=== PATIENT | female | born 1960 | race Caucasian/White ===

== ENCOUNTER 2021-09-29 14:05 | Inpatient (IN) | payer MEDICARE, OTHER ==
[~2021-09-29] VITALS: Ht 160 cm; Wt 74.4 kg
--- NOTE | 2021-09-29 14:16 | NUR ---
AYSE [id number] From Board and Care Slip/Fell 09/19 Dx w/Left LE Fx Boot applied. Here for re-evaluation". Rates left leg pain 12/08. Respiration regular and unlabored. Will continue to monitor the patient.
--- NOTE | 2021-09-29 14:32 | NUR ---
IV LINE IS ESTABLISHED, BLOOD SPECIMEN COLLECTED AND SENT TO THE LAB. THE LINE IS SALINE LOCKED.
[2021-09-29 14:44] LABS: BASOPHILS # (AUTO) 0.1 K/uL (0.0-0.2); BASOPHILS % (AUTO) 0.7 % (0.0-2.0); EOSINOPHILS % (AUTO) 2.9 % (0.0-6.0); HEMATOCRIT 32 % (33-45); HEMOGLOBIN 10.3 g/dL (11.5-14.8); LYMPHOCYTES # (AUTO) 3.1 K/uL (0.8-4.8); LYMPHOCYTES % (AUTO) 30.1 % (20.0-44.0); MEAN CORPUSCULAR HGB CONC 33 g/dl (31.0-36.0); MEAN CORPUSCULAR VOLUME 99 fL (82-100); MONOCYTES # (AUTO) 1.4 K/uL (0.1-1.30); MONOCYTES % (AUTO) 13.1 % (2.0-12.0); NEUTROPHILS # (AUTO) 5.5 K/uL (1.8-8.9); NEUTROPHILS % (AUTO) 53.2 % (43.0-81.0); PLATELET COUNT (AUTO) 467 K/uL (150-450); RED BLOOD CELL COUNT(AUTO) 3.18 MIL/uL (4.0-5.2); WHITE BLOOD COUNT (AUTO) 10.3 K/uL (4.3-11.0)
[2021-09-29 14:51] LABS: CALCIUM, SERUM 8.2 mg/dL (8.5-10.1); CARBON DIOXIDE 28 mmol/L (21-32); CHLORIDE 106 mmol/L (98-107); CREATININE 0.7 mg/dL (0.6-1.3); GLUCOSE 129 mg/dL (74-106); POTASSIUM 3.8 mmol/L (3.5-5.1); SODIUM SERUM 141 mmol/L (136-145); UREA NITROGEN, BLOOD 13 mg/dL (7-18)
--- NOTE | 2021-09-29 14:56 | NUR ---
X-RAY TECH AT THE BEDSIDE
[2021-09-29 15:01] LABS: ALANINE AMINOTRANSFERASE 7 U/L (12-78); ALBUMIN 2.1 g/dL (3.4-5.0); ALKALINE PHOSPHATASE 79 U/L (46-116); ASPARTATE AMINOTRANSFERASE 10 U/L (15-37); BILIRUBIN,DIRECT 0.1 mg/dL (0.0-0.2); BILIRUBIN,TOTAL 0.2 mg/dL (0.2-1.0); TOTAL PROTEIN, SERUM 5.9 g/dL (6.4-8.2)
--- NOTE | 2021-09-29 15:20 | NUR ---
COVID SWAB DONE AND SENT TO THE LAB
[2021-09-29] MEDS ORDERED: TOPI25TA PO (15:30)
[2021-09-29] MEDS ORDERED: DIVA500T2 PO (15:30)
[2021-09-29] MEDS ORDERED: METF-440 PO (15:30)
[2021-09-29] MEDS ORDERED: LATA2.5D15 EACHEYE (16:13)
[2021-09-29] MEDS ORDERED: BRIM5DRO2 EACHEYE (16:13)
[2021-09-29] MEDS ORDERED: CHOL200026 PO (16:13)
--- NOTE | 2021-09-29 16:35 | NUR ---
URINE COLLECTED AND SENT TO LAB
[2021-09-29 16:48] LABS: BILIRUBIN,URINE Negative (NEGATIVE); COLOR,URINE YELLOW (YELLOW); LEUKOCYTE ESTERASE ,URINE Negative (NEGATIVE); NITRITE, URINE Negative (NEGATIVE); PH,URINE 5.5 (5.0-8.0); PROTEIN,URINE Negative (NEGATIVE); UGLUCOSE Negative (NEGATIVE); UROBILINOGEN,URINE 0.2 EU/dL (0.2)
[2021-09-29 16:57] LABS: BACTERIA,URINE 1+ /HPF (None Seen); SQUAMOUS EPITHELIAL CELL,UR Many /HPF (None Seen); WBC,URINE 0-2 /HPF (0-3)
--- NOTE | 2021-09-29 17:30 | NUR ---
ROOM 120
--- NOTE | 2021-09-29 17:33 | NUR ---
REPORT GIVEN TO NURSE TAN
[2021-09-29] MEDS ORDERED: ONDANSETRON HCL/PF 4 MG/2 ML VIAL ONE (18:02)
[2021-09-29] MEDS ORDERED: MORPHINE SULFATE INJ 4 MG/ML DISP.SYRIN ONE (18:03)
[2021-09-29] MEDS: MORPHINE SULFATE INJ 4 MG/ML DISP.SYRIN IV PRN (18:09)
--- NOTE | 2021-09-29 18:09 | NUR ---
PT TAKEN TO RADIOLOGY FOR L KNEE CT SCAN VIA [employer]. MEDICATED ORDERED.
--- NOTE | 2021-09-29 18:13 | NUR ---
THE PATIENT IS TRANSFERED TO ROOM 120 IN STABLE CONDITION AND PER POLICY
[2021-09-29] MEDS ORDERED: ONDANSETRON HCL/PF 4 MG/2 ML VIAL IV PRN (18:30)
[2021-09-29 18:42] VITALS: BP 114/48
--- NOTE | 2021-09-29 19:20 | NUR ---
RN NOTES RECEIVED REPORT FROM MORNING RN. PATIENT IN BED A/O X3. NO SOB NO DISTRESS AT THIS TIME. VITAL SIGNS TAKEN AND RECORDED WITH IV ACCESS AT L AC PATENT FLUSHES WELL. WITH R LEG FRACTURE. ADMISSION SKIN ASSESSMENT DONE PICTURE TAKEN. IV OF D5 1/2 NS @75CC STARTED. WILL CONTINUE TO MONITOR.
[2021-09-29] MEDS ORDERED: ZOLPIDEM TARTRATE 5 MG TABLET PO PRN (19:30)
[2021-09-29] MEDS ORDERED: Z GUARD REMEDY 2 OZ OINT TP PRN (19:30)
[2021-09-29] MEDS ORDERED: MAG HYDROX/AL HYDROX/SIMETH 30 ML UDC PO PRN (19:30)
[2021-09-29] MEDS ORDERED: ACETAMINOPHEN 325 MG TABLET PO PRN (19:30)
[2021-09-29] MEDS ORDERED: ONDANSETRON HCL/PF 4 MG/2 ML VIAL IVP PRN (19:30)
[2021-09-29] MEDS ORDERED: MAGNESIUM HYDROXIDE 30 ML UDC PO PRN (19:30)
[2021-09-29] MEDS ORDERED: IV 1/2NS 1000 ML 1,000 ML IV PRN (19:30)
[2021-09-29] MEDS: IV D5/0.45 NACL 1,000 ML IV PRN (20:50)
[2021-09-29] MEDS: CLINDAMYCIN 600 MG in IV D5W 50 ML IV SCH (21:08)
[2021-09-29] MEDS: LATANOPROST EYE DROP 0.005% 2.5 ML BOTTLE EACHEYE SCH (22:52)
[2021-09-30 02:00] VITALS: BP 99/60
[2021-09-30] MEDS: CLINDAMYCIN 600 MG in IV D5W 50 ML IV SCH (04:26)
--- NOTE | 2021-09-30 06:45 | NUR ---
RN NOTES PATIENT REMAINS STABLE THE WHOLE SHIFT. NO SIGNIFICANT CHANGES IN HEALTH CONDITION. ALL DUE MEDS GIVEN ORDERD. KEPT CLEAN AND DRY AT ALL TIMES. HOB ELEVATED, BED ON LOWEST POSITION AND LOCKED. CALL LIGHT WITHIN REACH. PATIENT STILL ON NPO EXCEPT MEDS. FOR POSSIBLE OR.
--- NOTE | 2021-09-30 07:00 | NUR ---
RN NOTES PATIENT INFORMED ABOUT THE PLAN FOR ORIF. PATIENT STATED THAT SHE WANTS TO TALK TO THE DOCTOR AND SHE DOES NOT WANT ANY OPERATION AT THIS TIME. PATIENT IS A/O X4. WILL ENDORSED.
[2021-09-30 07:47] LABS: BASOPHILS # (AUTO) 0.1 K/uL (0.0-0.2); BASOPHILS % (AUTO) 0.6 % (0.0-2.0); EOSINOPHILS % (AUTO) 3.6 % (0.0-6.0); HEMATOCRIT 30 % (33-45); HEMOGLOBIN 10.1 g/dL (11.5-14.8); LYMPHOCYTES # (AUTO) 1.7 K/uL (0.8-4.8); LYMPHOCYTES % (AUTO) 21.1 % (20.0-44.0); MEAN CORPUSCULAR HGB CONC 34 g/dl (31.0-36.0); MEAN CORPUSCULAR VOLUME 99 fL (82-100); MONOCYTES # (AUTO) 1.5 K/uL (0.1-1.30); MONOCYTES % (AUTO) 18.2 % (2.0-12.0); NEUTROPHILS # (AUTO) 4.7 K/uL (1.8-8.9); NEUTROPHILS % (AUTO) 56.5 % (43.0-81.0); PLATELET COUNT (AUTO) 429 K/uL (150-450); RED BLOOD CELL COUNT(AUTO) 3.03 MIL/uL (4.0-5.2); WHITE BLOOD COUNT (AUTO) 8.3 K/uL (4.3-11.0)
--- NOTE | 2021-09-30 07:55 | NUR ---
RN OPEN NOTE PT RECEIVED IN BED ALERT AND ORIENTED X 4, WITH NO SOB OR DISTRESS AT THIS TIME BREATHING EVEN AND UNLABORED IN ROOM AIR TOLERATING WELL, WITH A LEFT TIBIAL/FX FRACTURE WITH PLAN FOR OR, NO CONSENT SIGN YET PT IS REFUSING, PT IS NPO EXCEPT MEDS, IV ON THE LAC #20 PATENT AND FLUSHING WELL RUNNING DS 1/2 NS 75CC/HR, SAFETY MEASURES IN PLACE BED LOCKED AND IN LOWEST POSITION CALL LIGHT WITHIN REACH WILL CONTINUE TO MONITOR
[2021-09-30] MEDS: CHOLECALCIFEROL 1,000 UNIT TABLET (VIT D3) PO SCH (09:11)
[2021-09-30] MEDS: DIVALPROEX SODIUM 500 MG TABLET.DR PO SCH ×2 (09:11→17:34)
[2021-09-30] MEDS: BRIMONIDINE TARTRATE OPHT SOLN 5 ML BOTTLE EACHEYE SCH (09:11)
[2021-09-30] MEDS: TOPIRAMATE 25 MG TABLET PO SCH ×3 (09:12→17:34)
[2021-09-30 09:45] LABS: CALCIUM, SERUM 7.8 mg/dL (8.5-10.1); CREATININE 0.7 mg/dL (0.6-1.3); MAGNESIUM 1.9 mg/dL (1.8-2.4); POTASSIUM 3.2 mmol/L (3.5-5.1)
[2021-09-30 10:00] VITALS: BP 98/54
--- NOTE | 2021-09-30 12:00 | NUR ---
RN NOTE CONSENT SIGNED FOR OPEN REDUCTION INTERNAL FIXATION OF LEFT LEG. AT BED SIDE EXPLAINED PROCEDURE TO THE PT PT AGREE FOR SURGERY
[2021-09-30 12:23] LABS: EOSINOPHILS % (MANUAL) 4 % (0-4); LYMPHOCYTES % (MANUAL) 19 % (16-48); MONOCYTES % (MANUAL) 16 % (0-11.0); NEUTROPHILS % (MANUAL) 61 (42-76)
--- NOTE | 2021-09-30 13:00 | NUR ---
RN NOTE PT WENT TO THE OR FOR SURGERY
[2021-09-30] MEDS ORDERED: HYDROMORPHONE INJ 2 MG/ML DISP.SYRIN ONE (13:42)
[2021-09-30] MEDS ORDERED: FENTANYL PF 250MCG/5ML AMPUL ONE (13:42)
[2021-09-30] MEDS ORDERED: ROCURONIUM BROMIDE 50 MG/5 ML ONE (13:43)
[2021-09-30] MEDS ORDERED: FAMOTIDINE/PF INJ 20 MG/2 ML VIAL IV ONE (13:43)
[2021-09-30] MEDS ORDERED: MIDAZOLAM HCL 2 MG/2ML VIAL ONE (13:43)
[2021-09-30] MEDS ORDERED: VANCOMYCIN 1 GM in IV D5W 250 ML IV ONE (14:00)
[2021-09-30] MEDS: CEFTRIAXONE 2 G in IV D5W 100 ML IV SCH (14:29)
--- NOTE | 2021-09-30 14:30 | NUR ---
RN NOTE PT CAME BACK FROM THE OR SURGERY, CANCELLED FOR SUNDAY AT 9:30 AM
--- NOTE | 2021-09-30 14:40 | NUR ---
RN NOTE PT STARTED ON VANCOMYCIN PER SURGEON
--- NOTE | 2021-09-30 15:00 | NUR ---
RN NOTES PT BACK TO REGULAR DIET UNTIL SUNDAY MIDNIGHT PER DOCTOR
[2021-09-30] MEDS: ENOXAPARIN SODIUM 40 MG/0.4 ML DISP.SYRIN SQ SCH (16:00)
[2021-09-30 18:00] VITALS: BP 100/40
--- NOTE | 2021-09-30 18:29 | NUR ---
RN CLOSING NOTE PT REMAINS IN BED ALERT AND ORIENTED X 4, WITH NO SOB OR DISTRESS AT THIS TIME BREATHING EVEN AND UNLABORED IN ROOM AIR TOLERATING WELL, WITH A LEFT TIBIAL/FX FRACTURE WITH PLAN FOR OR ON Sunday10/03/2021 AT 9:30 AM , CONSENT SIGNED PT IS BACK TO REGULAR DIET, IV ON THE LAC #20 PATENT AND FLUSHING WELL, ALL NEEDS MET, SAFETY MEASURES IN PLACE BED LOCKED AND IN LOWEST POSITION CALL LIGHT WITHIN REACH WILL ENDORSE TO RIBBON TIERLOGISTICS OFFICER
[2021-09-30] MEDS: HYDROCODONE/APAP 5/325MG TABLET PO PRN (19:38)
[2021-09-30] MEDS: IV D5/0.45 NACL 1,000 ML IV PRN (19:58)
[2021-09-30 20:00] VITALS: BP 96/52
--- NOTE | 2021-09-30 20:00 | NUR ---
Patient is alert and oriented x3. VS at baseline for pt. No signs of distress. Patient does however c/o 7/10 L lower leg pain at site of cellulitis medicated as per MD order. Extremity also elevated. No other issues at this time. Will continue to monitor closely.
[2021-09-30] MEDS: LATANOPROST EYE DROP 0.005% 2.5 ML BOTTLE EACHEYE SCH (21:55)
[2021-10-01] MEDS: VANCOMYCIN 1 GM in IV D5W 250 ML IV SCH ×2 (01:22→13:43)
[2021-10-01 04:00] VITALS: BP 109/61
[2021-10-01] MEDS: IV D5/0.45 NACL 1,000 ML IV PRN ×2 (06:46→18:42)
--- NOTE | 2021-10-01 07:10 | NUR ---
RN NOTE PATIENT OBSERVED IN BED AWAKE AND ORIENTED X3, ABLE TO VERBALIZE NEEDS, ADMITTED FOR LEFT LEG FRACTURE, ON ROOM AIR 100% O2 SAT NO SOB NOTED, LEFT AC GAUGE 20 D5 1/2 NS @ 75CC/HR INFUSING WELL SAFETY MEASURES OBSERVED, CALL LIGHT WITHIN REACH, WILL CONTINUE TO MONITOR.
[2021-10-01 07:14] LABS: BASOPHILS # (AUTO) 0.1 K/uL (0.0-0.2); BASOPHILS % (AUTO) 0.5 % (0.0-2.0); EOSINOPHILS % (AUTO) 1.8 % (0.0-6.0); HEMATOCRIT 28 % (33-45); HEMOGLOBIN 9.8 g/dL (11.5-14.8); LYMPHOCYTES % (AUTO) 19.2 % (20.0-44.0); MEAN CORPUSCULAR HGB CONC 34 g/dl (31.0-36.0); MEAN CORPUSCULAR VOLUME 97 fL (82-100); MONOCYTES # (AUTO) 1.5 K/uL (0.1-1.30); MONOCYTES % (AUTO) 14.9 % (2.0-12.0); NEUTROPHILS # (AUTO) 6.6 K/uL (1.8-8.9); NEUTROPHILS % (AUTO) 63.6 % (43.0-81.0); PLATELET COUNT (AUTO) 446 K/uL (150-450); RED BLOOD CELL COUNT(AUTO) 2.92 MIL/uL (4.0-5.2); WHITE BLOOD COUNT (AUTO) 10.4 K/uL (4.3-11.0)
[2021-10-01 07:23] LABS: CALCIUM, SERUM 8.7 mg/dL (8.5-10.1); CREATININE 0.7 mg/dL (0.6-1.3); MAGNESIUM 2.2 mg/dL (1.8-2.4); POTASSIUM 3.8 mmol/L (3.5-5.1)
[2021-10-01] MEDS: BRIMONIDINE TARTRATE OPHT SOLN 5 ML BOTTLE EACHEYE SCH (08:32)
[2021-10-01] MEDS: CHOLECALCIFEROL 1,000 UNIT TABLET (VIT D3) PO SCH (08:32)
[2021-10-01] MEDS: HYDROCODONE/APAP 5/325MG TABLET PO PRN ×2 (08:33→16:24)
[2021-10-01] MEDS: TOPIRAMATE 25 MG TABLET PO SCH ×3 (08:33→16:24)
[2021-10-01] MEDS: DIVALPROEX SODIUM 500 MG TABLET.DR PO SCH ×2 (08:33→16:24)
[2021-10-01] MEDS: ENOXAPARIN SODIUM 40 MG/0.4 ML DISP.SYRIN SQ SCH (08:35)
[2021-10-01 12:00] VITALS: BP 112/56
[2021-10-01] MEDS: CEFTRIAXONE 2 G in IV D5W 100 ML IV SCH (12:46)
[2021-10-01 16:00] VITALS: BP 112/61
--- NOTE | 2021-10-01 18:50 | NUR ---
RN NOTE PATIENT OBSERVED IN BED AWAKE AND ORIENTED X3, ABLE TO VERBALIZE NEEDS, ADMITTED FOR LEFT LEG FRACTURE, ON ROOM AIR 100% O2 SAT NO SOB NOTED,RIGHT HAND GAUGE 20 D5 1/2 NS @ 75CC/HR INFUSING WELL. ON SEIZURE PRECAUTION, HOLD ANTI COAGULANT TOMORROW, SAFETY MEASURES OBSERVED, CALL LIGHT WITHIN REACH, WILL ENDORSE TO NOC SHIFT.
--- NOTE | 2021-10-01 19:10 | NUR ---
RN NOTES RECEIVED REPORT FROM MORNING NURSE. PATIENT IS A/O X3.NO DISTRESS, NO SOB NOTED AT THIS TIME. VITAL SIGNS TAKEN AND RECORDED WITH IV ACCESS ON R ARM G#22 PATENT FLUSHES WELL. WITH ONGOING IVF OF D5 1/2 NS @75CC/HR. ALL SAFETY MEASURES IN PLACE AT ALL TIMES. HOB ELEVATED, CALL LIGHT WITHIN REACH, BED ON LOWEST POSITION AND LOCKED. WILL CONTINUE TO MONITOR THE PATIENT.
[2021-10-01 20:00] VITALS: BP 100/76
[2021-10-01] MEDS: LATANOPROST EYE DROP 0.005% 2.5 ML BOTTLE EACHEYE SCH (22:34)
--- NOTE | 2021-10-01 23:55 | NUR ---
RN NOTES PATIENT REMAINS STABLE AT THIS TIME. DR. MONO NICOLE INSERTED AN MIDLINE IN HER R UPPER ARM G#18 TOLERATED WELL. WILL CONTINUE TO MONITOR
[2021-10-02] VITALS: BP 101/72
--- NOTE | 2021-10-02 00:25 | NUR ---
RN NOTES PATIENT TRANSFER TO [address] [place] [address] [phone] VIA BED. PATIENT REMAINS IN STABLE CONDITION. ALL DUE MEDS GIVEN ORDERED. ALL NEEDS ATTENDED, KEPT CLEAN AND DRY.ALL BELONGINGS GIVEN. BEDSIDE REPORT GIVEN TO LAZ CAPUTO AND ANDREW CAPUTO.
[2021-10-02 00:27] VITALS: BP 112/62
--- NOTE | 2021-10-02 00:30 | NUR ---
MS RN NOTES RECEIVED PATIENT FROM [place]. A/OX3. PATIENT WITH REGULAR AND UNLABORED BREATHING ON ROOM AIR, TOLERATED WELL. NO SIGNS AND SYMPTOMS OF DISTRESS NOTED. NO COMPLAIN OF PAIN OR DISCOMFORT AT THIS TIME. IV ACCESS BRITTNI MIDLINE G #18. ACCESS PATENT AND INTACT. SAFETY PRECAUTIONS ENFORCED WITH BED LOCKED AND AT LOWEST POSITION. SIDERAILS UP X2. CALL LIGHT WITHIN REACH AT ALL TIMES. WILL CONTINUE TO MONITOR PATIENT.
[2021-10-02] MEDS: VANCOMYCIN 1 GM in IV D5W 250 ML IV SCH ×2 (02:50→13:26)
[2021-10-02] MEDS: IV D5/0.45 NACL 1,000 ML IV PRN (05:36)
[2021-10-02] MEDS: HYDROCODONE/APAP 5/325MG TABLET PO PRN ×4 (06:31→22:10)
--- NOTE | 2021-10-02 06:32 | NUR ---
MS RN NOTES PATIENT COMPLAINED OF PAIN. ADMINISTERED NORCO 5-325 MG Q4H PRN ORDERED BY HOSPITALIST.
[2021-10-02 06:50] LABS: BASOPHILS # (AUTO) 0.1 K/uL (0.0-0.2); BASOPHILS % (AUTO) 0.7 % (0.0-2.0); EOSINOPHILS % (AUTO) 2.7 % (0.0-6.0); HEMATOCRIT 28 % (33-45); HEMOGLOBIN 9.2 g/dL (11.5-14.8); LYMPHOCYTES # (AUTO) 2.3 K/uL (0.8-4.8); LYMPHOCYTES % (AUTO) 25.8 % (20.0-44.0); MEAN CORPUSCULAR HGB CONC 33 g/dl (31.0-36.0); MEAN CORPUSCULAR VOLUME 100 fL (82-100); MONOCYTES # (AUTO) 1.5 K/uL (0.1-1.30); NEUTROPHILS # (AUTO) 4.8 K/uL (1.8-8.9); NEUTROPHILS % (AUTO) 53.8 % (43.0-81.0); PLATELET COUNT (AUTO) 413 K/uL (150-450); RED BLOOD CELL COUNT(AUTO) 2.78 MIL/uL (4.0-5.2); WHITE BLOOD COUNT (AUTO) 8.9 K/uL (4.3-11.0)
--- NOTE | 2021-10-02 07:04 | NUR ---
MS RN CLOSING NOTES PATIENT AWAKE LAYING IN BED. A/OX3. PATIENT WITH REGULAR AND UNLABORED BREATHING ON ROOM AIR, TOLERATED WELL. NO SIGNS AND SYMPTOMS OF DISTRESS NOTED. ALL ROUTINE MEDICATIONS GIVE AND PAIN MANAGEMENT PROVIDED NEEDED. IV ACCESS BRITTNI MIDLINE G #18. ACCESS PATENT AND INTACT. SAFETY PRECAUTIONS ENFORCED WITH BED LOCKED AND AT LOWEST POSITION. SIDERAILS UP X2. CALL LIGHT WITHIN REACH AT ALL TIMES. WILL ENDORSE CONTINUITY OF CARE TO DAY SHIFT NURSE.
[2021-10-02 07:13] LABS: CALCIUM, SERUM 8.3 mg/dL (8.5-10.1); CREATININE 0.6 mg/dL (0.6-1.3); MAGNESIUM 2.1 mg/dL (1.8-2.4); POTASSIUM 3.3 mmol/L (3.5-5.1)
--- NOTE | 2021-10-02 07:26 | NUR ---
RN NOTES PATIENT IN BED RESTING, AWAKE AND VERBALLY RESPONSIVE. A/OX3. BREATHING EVEN AND UNLABORED ON ROOM AIR. NO SIGNS AND SYMPTOMS OF DISTRESS. RECEIVED PAIN MEDICATION PER PROTECTION MGR RN. IV ACCESS BRITTNI MIDLINE G #18, PATENT AND INTACT, IVF INFUSING WELL. SAFETY PRECAUTIONS IN PLACE: BED LOCKED AND AT LOWEST POSITION. SIDERAILS UP X2. CALL LIGHT WITHIN REACH AT ALL TIMES. WILL CONTINUE TO MONITOR.
[2021-10-02 08:00] VITALS: BP 110/40
[2021-10-02] MEDS: ENOXAPARIN SODIUM 40 MG/0.4 ML DISP.SYRIN SQ SCH (08:14)
[2021-10-02] MEDS: BRIMONIDINE TARTRATE OPHT SOLN 5 ML BOTTLE EACHEYE SCH (08:52)
[2021-10-02] MEDS: TOPIRAMATE 25 MG TABLET PO SCH ×3 (08:52→16:05)
[2021-10-02] MEDS: DIVALPROEX SODIUM 500 MG TABLET.DR PO SCH ×2 (08:52→16:05)
[2021-10-02] MEDS: CHOLECALCIFEROL 1,000 UNIT TABLET (VIT D3) PO SCH (08:52)
[2021-10-02 08:56] LABS: IRON, SERUM 38 ug/dl (50-175); TOTAL IRON BINDING CAPACITY 135 ug/dl (250-450)
--- NOTE | 2021-10-02 09:00 | NUR ---
RN NOTES ANTICOAGULANT HELD AT THIS TIME FOR SCHEDULE SURGERY.
[2021-10-02 09:11] LABS: FERRITIN 274 ng/mL (8-388)
[2021-10-02] MEDS ORDERED: POTASSIUM CHLORIDE 20 MEQ TAB.PRT.SR PO SCH (11:30)
[2021-10-02] MEDS: CEFTRIAXONE 2 G in IV D5W 100 ML IV SCH (12:09)
--- NOTE | 2021-10-02 13:34 | NUR ---
RN NOTES CONSENT FOR MODERATE SEDATION SIGNED BY PATIENT AND PLACED IN CHART.
[2021-10-02 17:51] VITALS: BP 100/66
--- NOTE | 2021-10-02 18:30 | NUR ---
RN NOTES PATIENT IN BED WATCHING TV. NOT IN ACUTE DISTRESS. DUE MEDS GIVEN TODAY. IV LINE INTACT AND PATENT, IVF INFUSING WELL. AWARE OF SURGERY FOR TOMORROW. LLE ELEVATED W/ PILLOW FOR COMFORT. PAIN MEDICATION GIVEN DIRECTED. SAFETY MEASURES MAINTAINED. WILL ENDORSE TO LIFE ADVISOR RN FOR JARED.
--- NOTE | 2021-10-02 19:42 | NUR ---
MS RN OPENING NOTE RECEIVED PATIENT IN BED. A/OX4. ABLE TO MAKE NEEDS KNOWN. NEEDS ATTENDED FOR NOW. NOT EXHIBITING S/S OF APPARENT DISTRESS. DENIES PAIN AT THIS TIME. D5 1/2 NS RUNNING @75CC/HR AT THIS TIME. PATIENT Maria D LED NOTED TO BE SWOLLEN WITH DRESSING. SAFETY IN PLACE. WILL CONTINUE WITH PLAN OF CARE.
[2021-10-02 20:00] VITALS: BP 105/54
[2021-10-02] MEDS: LATANOPROST EYE DROP 0.005% 2.5 ML BOTTLE EACHEYE SCH (22:09)
[2021-10-03] MEDS: VANCOMYCIN 1 GM in IV D5W 250 ML IV SCH ×2 (02:14→16:01)
--- NOTE | 2021-10-03 02:14 | NUR ---
MS RN NOTE VANCO TROUGH 16. OK TO GIVE VANCO.
[2021-10-03] MEDS: IV D5/0.45 NACL 1,000 ML IV PRN (02:21)
--- NOTE | 2021-10-03 06:33 | NUR ---
MS RN CLOSING NOTE PATIENT IN BED WITH EYES CLOSED. EASY TO AROUSE. A/OX4. ABLE TO MAKES NEEDS KNOWN. CELLULITIS IN BOTH LEGS -- PICTURES TAKEN. L. LEG WITH DRESSING. NO S/S OF APPARENT DISTRESS WITH HOB FLAT-- PATIENT PREFERS IT LIKE THAT. PAIN AT TOLERABLE LEVEL RIGHT NOW AND NOT WANTING MEDICATION AT THIS TIME. PATIENT KEPT NPO. SAFETY IN PLACE. IV D5 1/2 NS RUNNING AT 75 ML/HR. ALL NEEDS ATTENDED. ALL SCHEDULED MEDICATION ADMINISTERED. WILL ENDORSE TO MORNING SHIFT RN FOR CONTINUITY OF CARE.
--- NOTE | 2021-10-03 07:39 | NUR ---
MS RN OPENING NOTE RECEIVED PATIENT IN BED, ASLEEP. PATIENT ON ROOM AIR, NO S/S OF DISTRESS OR SOB NOTED, BREATHING EVEN AND UNLABORED. NO S/S OF PAIN SUCH FACIAL GRIMACING, MOANING OR GUARDING NOTED. BRITTNI MIDLINE PRESENT AND INTACT RUNNING D5 1/2 NS @ 75 MLS/HR. PATIENT KEPT NPO DUE TO SURGERY TODAY. SAFETY MEASURES IN PLACE: BED LOCKED IN LOW POSITION, SIDE RAILS UP X 2, CALL LIGHT AND TABLE WITHIN REACH. WILL CONTINUE TO MONITOR PATIENT.
[2021-10-03 08:00] VITALS: BP 114/60
[2021-10-03] MEDS: TOPIRAMATE 25 MG TABLET PO SCH ×3 (08:35→17:21)
[2021-10-03] MEDS: CHOLECALCIFEROL 1,000 UNIT TABLET (VIT D3) PO SCH (08:35)
[2021-10-03] MEDS: DIVALPROEX SODIUM 500 MG TABLET.DR PO SCH ×2 (08:35→17:21)
[2021-10-03] MEDS: BRIMONIDINE TARTRATE OPHT SOLN 5 ML BOTTLE EACHEYE SCH (08:38)
[2021-10-03 09:07] LABS: BASOPHILS # (AUTO) 0.1 K/uL (0.0-0.2); BASOPHILS % (AUTO) 0.7 % (0.0-2.0); EOSINOPHILS % (AUTO) 2.8 % (0.0-6.0); HEMATOCRIT 28 % (33-45); HEMOGLOBIN 9.2 g/dL (11.5-14.8); LYMPHOCYTES # (AUTO) 2.2 K/uL (0.8-4.8); LYMPHOCYTES % (AUTO) 22.6 % (20.0-44.0); MEAN CORPUSCULAR HGB CONC 33 g/dl (31.0-36.0); MEAN CORPUSCULAR VOLUME 99 fL (82-100); MONOCYTES # (AUTO) 1.8 K/uL (0.1-1.30); MONOCYTES % (AUTO) 18.4 % (2.0-12.0); NEUTROPHILS # (AUTO) 5.3 K/uL (1.8-8.9); NEUTROPHILS % (AUTO) 55.5 % (43.0-81.0); PLATELET COUNT (AUTO) 417 K/uL (150-450); RED BLOOD CELL COUNT(AUTO) 2.79 MIL/uL (4.0-5.2); WHITE BLOOD COUNT (AUTO) 9.6 K/uL (4.3-11.0)
[2021-10-03 09:35] LABS: CALCIUM, SERUM 8.4 mg/dL (8.5-10.1); CREATININE 0.7 mg/dL (0.6-1.3); MAGNESIUM 1.8 mg/dL (1.8-2.4); POTASSIUM 3.9 mmol/L (3.5-5.1)
[2021-10-03] MEDS ORDERED: HYDROMORPHONE INJ 2 MG/ML DISP.SYRIN ONE (10:03)
[2021-10-03] MEDS ORDERED: FENTANYL PF 100MCG/2ML AMPUL ONE (10:03)
[2021-10-03] MEDS ORDERED: MIDAZOLAM HCL 2 MG/2ML VIAL ONE (10:03)
[2021-10-03] MEDS ORDERED: ROCURONIUM BROMIDE 50 MG/5 ML ONE (10:03)
[2021-10-03] MEDS ORDERED: ANESTHESIA TRAY IN PYXIS 1 EA TRAY MC ONE (10:05)
[2021-10-03] MEDS ORDERED: BUPIVACAINE 0.25% 75 MG/30 ML VIAL ONE (10:05)
--- NOTE | 2021-10-03 11:26 | NUR ---
WOUND CARE CONSULT: RECEIVED CONSULT FOR LEFT LOWER LEG CELLULITIS. PT OFF UNIT IN O.R. AT THIS TIME. WILL SEE PT PT CONDITION PERMITS.
--- NOTE | 2021-10-03 14:59 | NUR ---
MS RN POST-OP NOTES PATIENT BACK FROM OR. AWAKE BUT DOSING INTERMITTENTLY. VITAL SIGNS WITHIN NORMAL RANGE; BP 116/46 HR 95 TEMP 97.7 RR 15 O2 99 ON 2 LPM NASAL CANULA. WILL CONTINUE TO MONITOR PATIENT.
--- NOTE | 2021-10-03 15:08 | NUR ---
POST OP ORDERS: 1. NWB LEFT LEG, ROM 0-70 DEGREES 2. FIRST DRESSING CHANGE BY WOUND CARE TEAM 3. REGULAR DIET TOLERATED 4. LOVENOX 40 MG SQ DAILY 5. DE LA CRUZ CATH REMOVE POST OP DAY 1
[2021-10-03] MEDS: CEFTRIAXONE 2 G in IV D5W 100 ML IV SCH (15:10)
[2021-10-03 16:00] VITALS: BP 124/62
--- NOTE | 2021-10-03 18:39 | NUR ---
MS RN CLOSING NOTE PATIENT IN BED, AWAKE, A/O X3. PATIENT ON ROOM AIR, NO S/S OF DISTRESS OR SOB NOTED, BREATHING EVEN AND UNLABORED. NO COMPLAINS OF ACUTE PAIN AT THIS TIME. BRITTNI MIDLINE PRESENT AND INTACT RUNNING D5 1/2 NS @ 75 MLS/HR. DE [place] CRUZ CATH IN PLACE DRAINING CLEAR YELLOW URINE. ALL NEEDS ATTENDED DURING THE DAY. SAFETY MEASURES IN PLACE: BED LOCKED IN LOW POSITION, SIDE RAILS UP X 2, CALL LIGHT AND TABLE WITHIN REACH. WILL ENDORSE TO GENERAL MERCHANDISE MANAGER NURSE FOR JARED.
--- NOTE | 2021-10-03 19:30 | NUR ---
MS RN OPENING NOTE RECEIVED PATIENT IN BED, WITH EYES CLOSED. S/P ORIF SURGERY. EASY TO AROUSE. A/OX4. NOT EXHIBITING ANY S/S OF APPARENT DISTRESS. DENIES PAIN AT THIS TIME. ABLE TO MAKE NEEDS KNOWN. D5 1/2 NS RUNNING @75 ML/HR. DE LA CRUZ CATHETER DRAINING CLEAR YELLOW URINE. DRESSING ON LEFT LEG -- FIRST DRESSING TO BE CHANGED BY WOUND CARE TEAM. WILL CONTINUE TO MONITOR.
[2021-10-03 20:00] VITALS: BP 101/56
[2021-10-03] MEDS: HYDROCODONE/APAP 5/325MG TABLET PO PRN (20:03)
[2021-10-03] MEDS: LATANOPROST EYE DROP 0.005% 2.5 ML BOTTLE EACHEYE SCH (21:29)
[2021-10-03] MEDS ORDERED: ANCEF 1 GM/50 ML D5W IV SCH (22:00)
[2021-10-04] MEDS: MORPHINE SULFATE INJ 4 MG/ML DISP.SYRIN IV PRN (02:12)
[2021-10-04] MEDS: VANCOMYCIN 1 GM in IV D5W 250 ML IV SCH ×2 (02:29→14:08)
--- NOTE | 2021-10-04 03:21 | NUR ---
MS RN NOTE PATIENT GIVEN THE ORDERED MORPHINE 4MG ONE TIME DOSE BEFORE CHANGE. PATIENT WANTED TO BE CHANGED BECAUSE SHE HAD A BOWEL MOVEMENT. PATIENT IN SEVERE PAIN WHEN TOUCHED OR MOVED. WILL REASSESS.
[2021-10-04] MEDS: IV D5/0.45 NACL 1,000 ML IV PRN (03:41)
[2021-10-04] MEDS: HYDROCODONE/APAP 5/325MG TABLET PO PRN ×2 (05:46→13:12)
--- NOTE | 2021-10-04 06:44 | NUR ---
/MS RN CLOSING NOTE PATIENT IN BED WITH EYES CLOSED. A/OX4. AMBULATORY WITH STEADY GAITS AND ABLE TO MAKE NEEDS KNOWN. NO S/S OF APPARENT DISTRESS. PAIN MANAGED WITH MEDICATIONS AND ICE PACK. ALL NEEDS ATTENDED. ALL SCHEDULED MEDICATION ADMINISTERED. DRESSING DRY AND INTACT. IV FLUIDS ON HOLD PER PATIENT REQUEST. WILL ENDORSED TO MORNING SHIFT RN FOR CONTINUITY OF CARE. Addendum: 10/04/21 at 0645 by EMILY HOLLAND RN DISREGARD NOTE
--- NOTE | 2021-10-04 06:52 | NUR ---
MS RN NOTE I TOLD PATIENT I WAS GOING TO TAKE OFF HER DE LA CRUZ CATHETER, PATIENT REFUSED FOR NOW EVEN WITH PATIENT EDUCATION. PATIENT ACKNOWLEDGE RISKS AND MORE CONCERNED ABOUT PAIN DURING CHANGES. WILL ENDORSE TO MORNING SHIFT RN.
--- NOTE | 2021-10-04 06:54 | NUR ---
MS RN CLOSING NOTE PATIENT IN BED WITH EYES CLOSED, EASY TO AROUSE. A/OX4. ABLE TO MAKE NEEDS KNOWN. NO S/S OF APPARENT DISTRESS. PAIN MANAGED WITH MEDICATIONS AND ICE PACK. ALL NEEDS ATTENDED. ALL SCHEDULED MEDICATION ADMINISTERED. DRESSING DRY AND INTACT. LEFT LEG WITH DRESSING, MADINA BANDAGES WRAPPED AND HINGE KNEE BRACE IN PLACE, DRY AND INTACT AND ELEVATED. IV D5 NS RUNNING @75ML/HR. REFUSED TO TAKE OFF DE LA CRUZ AT THIS TIME. UO 1900ML WILL ENDORSED TO MORNING SHIFT RN FOR CONTINUITY OF CARE.
[2021-10-04 07:08] LABS: BASOPHILS % (AUTO) 0.3 % (0.0-2.0); HEMATOCRIT 25 % (33-45); HEMOGLOBIN 8.4 g/dL (11.5-14.8); LYMPHOCYTES # (AUTO) 2.1 K/uL (0.8-4.8); MEAN CORPUSCULAR HGB CONC 33 g/dl (31.0-36.0); MEAN CORPUSCULAR VOLUME 98 fL (82-100); MONOCYTES # (AUTO) 2.7 K/uL (0.1-1.30); MONOCYTES % (AUTO) 19.6 % (2.0-12.0); NEUTROPHILS % (AUTO) 65.1 % (43.0-81.0); PLATELET COUNT (AUTO) 450 K/uL (150-450); RED BLOOD CELL COUNT(AUTO) 2.57 MIL/uL (4.0-5.2); WHITE BLOOD COUNT (AUTO) 13.8 K/uL (4.3-11.0)
[2021-10-04 07:20] LABS: CALCIUM, SERUM 8.5 mg/dL (8.5-10.1); CREATININE 0.7 mg/dL (0.6-1.3); MAGNESIUM 1.6 mg/dL (1.8-2.4); POTASSIUM 4.1 mmol/L (3.5-5.1)
[2021-10-04 08:00] VITALS: BP 103/60
[2021-10-04] MEDS: TOPIRAMATE 25 MG TABLET PO SCH ×3 (08:52→17:30)
[2021-10-04] MEDS: DIVALPROEX SODIUM 500 MG TABLET.DR PO SCH ×2 (08:52→17:30)
[2021-10-04] MEDS: CHOLECALCIFEROL 1,000 UNIT TABLET (VIT D3) PO SCH (08:52)
[2021-10-04] MEDS: BRIMONIDINE TARTRATE OPHT SOLN 5 ML BOTTLE EACHEYE SCH (08:54)
[2021-10-04] MEDS: ENOXAPARIN SODIUM 40 MG/0.4 ML DISP.SYRIN SQ SCH (08:54)
--- NOTE | 2021-10-04 09:01 | NUR ---
RN OPENING NOTES PT AWAKE IN BED, A/OX4, NO SOB, NO RR DISTRESS, IV ACCESS IN RIGHT UPPER ARM MIDLINE D5 1/2 NS RUNNING AT 75 ML/ HR, DE [place] CRUZ CATHETER AND BRIEFS WORN NOTED, LEFT LEG WITH DRESSING, DRY INTACT AND ELEVATED, HINGE KNEE BRACE IN PLACE, CALL LIGHT WITH IN REACH, BED LOCKED AND LOWERED, SAFETY PRECAUTIONS MET.
[2021-10-04] MEDS: Magnesium 1GM/D5W 100ML PREMIX 100 ML IV SCH ×2 (10:22→13:13)
[2021-10-04 12:42] LABS: BAND % (MANUAL) 2 % (0.0-5.0); NEUTROPHILS % (MANUAL) 61 (42-76)
[2021-10-04 12:43] LABS: LYMPHOCYTES % (MANUAL) 22 % (16-48); MONOCYTES % (MANUAL) 1 % (0-11.0); REACTIVE LYMPHOCYTES 14 % (0-0)
[2021-10-04] MEDS: CEFTRIAXONE 2 G in IV D5W 100 ML IV SCH (13:22)
--- NOTE | 2021-10-04 14:00 | NUR ---
RN MS NOTES PT SEEN AND EXAMINED BY DR. SIMS, PLAN OF CARE DISCUSSED WITH PT, VERBALIZED UNDERSTANDING.
[2021-10-04 16:00] VITALS: BP 108/58
--- NOTE | 2021-10-04 16:27 | NUR ---
RN MS NOTES REPORT GIVEN TO JOSR CAPUTO FOR CONTINUITY OF CARE.
--- NOTE | 2021-10-04 16:45 | NUR ---
RN NOTE- DE LA CRUZ CATHETER DC AT THIS TIME . 1700 CC YELLOW UA EMPTIED. TOLERATED WELL.
--- NOTE | 2021-10-04 18:46 | NUR ---
RN CLOSING NOTE- PT INTERACTIVE, MED COMPLIANT, IV MIDLINE BRITTNI. JONO RANGEL'Fred. SUBSEQUENTLY VOIDED. VS STABLE . NEEDS ATTENDED. SIDE RAILS UP X 4 , BED LOCKED,. CALL LIGHT IN REACH. ASSIST PRN. MONITOR
--- NOTE | 2021-10-04 19:18 | NUR ---
RN OPENING NOTES RECEIVED PT AWAKE IN BED, A/OX4, NO SOB, NO RESPIRATORY DISTRESS NOTED. BREATHING EVEN AND UNLABORED.DENIES OF PAIN OR DISCOMFORT AT THIS TIME. PT. WITH IV ACCESS IN RIGHT UPPER ARM MIDLINE INTACT AND PATENT. HINGE KNEE BRACE IN PLACE, ELEVATED LLE WITH PILLOWS TO REDUCE SWELLING OF THE LEGS. CALL LIGHT WITHIN REACH, BED LOCKED AND LOWERED, SRX2 SAFETY PRECAUTIONS MET. WILL CONTINUE TO MONITOR PT. ACCDGLY
[2021-10-04 20:00] VITALS: BP 121/50
[2021-10-04] MEDS: LATANOPROST EYE DROP 0.005% 2.5 ML BOTTLE EACHEYE SCH (21:06)
[2021-10-05] MEDS: VANCOMYCIN 1 GM in IV D5W 250 ML IV SCH (02:03)
--- NOTE | 2021-10-05 06:32 | NUR ---
RN MS CLOSING NOTES PT. AWAKE IN BED, A/OX4, NO SOB, NO RESPIRATORY DISTRESS NOTED. BREATHING EVEN AND UNLABORED.DENIES OF PAIN OR DISCOMFORT AT THIS TIME. PT. WITH IV ACCESS IN RIGHT UPPER ARM MIDLINE INTACT AND PATENT. HINGE KNEE BRACE IN PLACE, ELEVATED LLE WITH PILLOWS TO REDUCE SWELLING OF THE LEGS. ALL NEEDS ATTENDED. CALL LIGHT WITHIN REACH, BED LOCKED AND LOWERED, SRX2 SAFETY PRECAUTIONS MET. WILL ENDORSED PATIENT TO DAY TIME SHIFT NURSE FOR JARED
[2021-10-05 06:40] LABS: BASOPHILS # (AUTO) 0.1 K/uL (0.0-0.2); BASOPHILS % (AUTO) 0.8 % (0.0-2.0); EOSINOPHILS % (AUTO) 0.5 % (0.0-6.0); HEMATOCRIT 24 % (33-45); HEMOGLOBIN 8.2 g/dL (11.5-14.8); LYMPHOCYTES # (AUTO) 2.5 K/uL (0.8-4.8); LYMPHOCYTES % (AUTO) 18.3 % (20.0-44.0); MEAN CORPUSCULAR HGB CONC 34 g/dl (31.0-36.0); MEAN CORPUSCULAR VOLUME 98 fL (82-100); MONOCYTES % (AUTO) 21.9 % (2.0-12.0); NEUTROPHILS % (AUTO) 58.5 % (43.0-81.0); PLATELET COUNT (AUTO) 384 K/uL (150-450); RED BLOOD CELL COUNT(AUTO) 2.47 MIL/uL (4.0-5.2); WHITE BLOOD COUNT (AUTO) 13.7 K/uL (4.3-11.0)
[2021-10-05 07:05] LABS: ALBUMIN 1.7 g/dL (3.4-5.0); BILIRUBIN,TOTAL 0.3 mg/dL (0.2-1.0); CALCIUM, SERUM 8.3 mg/dL (8.5-10.1); CREATININE 0.7 mg/dL (0.6-1.3); MAGNESIUM 1.8 mg/dL (1.8-2.4); PHOSPHORUS 2.6 mg/dL (2.5-4.9); POTASSIUM 3.7 mmol/L (3.5-5.1); TOTAL PROTEIN, SERUM 5.9 g/dL (6.4-8.2)
--- NOTE | 2021-10-05 07:30 | NUR ---
HARSHAL CURRIE NOTES PT IN BED, AWAKE, ALERT AND ORIENTED, NO COMPLAINT OF PAIN OR ANY DISCOMFORT AT THIS TIME, RESPIRATIONS NORMAL, TOLERATES ROOM AIR, PLAN OF CARE DISCUSSED WITH PT, VERBALIZED UNDERSTANDING, ASSISTED WITH BREAKFAST, KEPT COMFORTABLE.
[2021-10-05 08:00] VITALS: BP 132/64
[2021-10-05] MEDS: CHOLECALCIFEROL 1,000 UNIT TABLET (VIT D3) PO SCH (08:37)
[2021-10-05] MEDS: TOPIRAMATE 25 MG TABLET PO SCH ×3 (08:37→16:05)
[2021-10-05] MEDS: DIVALPROEX SODIUM 500 MG TABLET.DR PO SCH ×2 (08:37→16:05)
[2021-10-05] MEDS: BRIMONIDINE TARTRATE OPHT SOLN 5 ML BOTTLE EACHEYE SCH (08:37)
[2021-10-05] MEDS: ENOXAPARIN SODIUM 40 MG/0.4 ML DISP.SYRIN SQ SCH (08:38)
[2021-10-05 09:43] LABS: LYMPHOCYTES % (MANUAL) 28 % (16-48); MONOCYTES % (MANUAL) 15 % (0-11.0); NEUTROPHILS % (MANUAL) 57 (42-76)
[2021-10-05] MEDS: HYDROCODONE/APAP 5/325MG TABLET PO PRN (11:52)
[2021-10-05] MEDS: CEFTRIAXONE 2 G in IV D5W 100 ML IV SCH ×2 (12:49→12:52)
[2021-10-05] MEDS ORDERED: VANCOMYCIN 0.75 GM in IV D5W 250 ML IV SCH (14:00)
[2021-10-05 15:56] VITALS: BP 120/52
--- NOTE | 2021-10-05 18:16 | NUR ---
RN MS NOTES PT IN BED, AWAKE, ALERT AND ORIENTED, RESTING IN BED, NO COMPLAINT OF PAIN OR ANY DISCOMFORT, RESPIRATIONS NORMAL, SEEN BY DR. SIMS TODAY, DISCHARGE ORDER GIVEN, DISCHARGE AND MEDICATION INSTRUCTIONS PROVIDED TO PT, VERBALIZED UNDERSTANDING, BELONGINGS ACCOUNTED FOR, SKIN PHOTOS DONE, UNABLE TO TAKE PHOTOS OF THE LEFT LEG AND LEFT THIGH DUE TO PT DOES NOT WANT DRESSING AT THE INCISION SITE BE DISTURBED, HINGED LEG BRACE IN PLACE, REPORT GIVEN TO LIANET CAPUTO OF [facility], SHOE CLEANER TIME 8:30 PM, PT AND ROBERTO AWARE.
--- NOTE | 2021-10-05 19:55 | NUR ---
MS RN OPENING NOTES RECEIVED PT IN BED, AWAKE. AOx4. ABLE TO MAKE NEEDS KNOWN. ON RA AND TOLERATING WELL. NO SOB NOTED. NO S/SX OF RESPIRATORY DISTRESS NOTED. IV ACCESS IN BRITTNI MIDLINE. IV IS INTACT, PATENT,AND FLUSHING WELL. SAFETY PRECAUTIONS IN PLACE: BED IN LOWEST, LOCKED POSITION, SIDERAILS UPx2, AND BRAKES ON. TABLE AND CALL LIGHT WITHIN REACH. WILL CONTINUE TO MONITOR.
--- NOTE | 2021-10-05 21:02 | NUR ---
DISCHARGE NOTES PT LEFT WITH TWO EMT'S VIA [facility]. ALL BELONGINGS ACCOUNTED FOR. DISCHARGE AND BELONGINGS PAPERWORK SIGNED. EDUCATION PROVIDED. IV ACCESS AND WRISTBAND REMOVED. REPORT GIVEN TO FACILITY NURSE PER DAY NURSE.
== END 2021-10-05 21:00 | DRG 493 ==
LOC: ER 14:36 → MEDSG1 18:03 → MED 10-02 00:22
PROVIDERS: ADMIT Nurse Practitioner Family
PROC: 05H933Z Insertion of Infusion Device into Right Brachial Vein, Percutaneous Approach (ICD-10-PCS; principal; 2021-10-02)
PROC: 0QSH04Z Reposition Left Tibia with Internal Fixation Device, Open Approach (ICD-10-PCS; 2021-10-03)
DX: M97.12XA Periprosthetic fracture around internal prosthetic left knee joint, initial encounter (principal); S82.102A Unspecified fracture of upper end of left tibia, initial encounter for closed fracture; L03.116 Cellulitis of left lower limb; E44.0 Moderate protein-calorie malnutrition; E87.2 Acidosis; J98.11 Atelectasis; X58.XXXA Exposure to other specified factors, initial encounter; Y92.89 Other specified places as the place of occurrence of the external cause; I10 Essential (primary) hypertension; Z79.84 Long term (current) use of oral hypoglycemic drugs; Z79.899 Other long term (current) drug therapy; S82.832A Other fracture of upper and lower end of left fibula, initial encounter for closed fracture; W01.0XXA Fall on same level from slipping, tripping and stumbling without subsequent striking against object, initial encounter; Y92.129 Unspecified place in nursing home as the place of occurrence of the external cause; G40.909 Epilepsy, unspecified, not intractable, without status epilepticus; Z20.822 Contact with and (suspected) exposure to COVID-19; D64.9 Anemia, unspecified; M25.462 Effusion, left knee; H55.00 Unspecified nystagmus; I87.8 Other specified disorders of veins; Z88.2 Allergy status to sulfonamides; Z74.01 Bed confinement status
CPT/HCPCS: 36415; 71045-TC; 73560-TC; 73564-TC; 73590-TC; 73700-TC; 80048-TC; 80053-TC; 80061-TC; 80076-TC; 80202-TC; 81001; 82728-TC; 83540-TC; 83605-TC; 83735-TC; 84100-TC; 84484-TC; 85025-TC; 85610-TC; 85730-TC; 87040-TC; 87081-TC; 87086-TC; 87806; 93307-TC; 93970-TC; 97110-TC; 97112-TC; 97530-TC; A6253; A6403; C1713; C9803; G0378; J0690; J0696; J1100; J1170; J1650; J2250; J2270; J2405; J2704; J3010; J3370; J3475; J3490; J7030; J7042; J7050; J7060; L1830